=== PATIENT | male | born 1980 | race Caucasian/White ===

== ENCOUNTER 2016-10-24 01:36 | Emergency (ER) | payer OTHER ==
[~2016-10-24] VITALS: Ht 185.4 cm; Wt 119.8 kg
[2016-10-24 01:57] VITALS: BP 154/97; PULSE 113; RESP 20; TEMP 98.5; O2SAT 96
[2016-10-24] MEDS ORDERED: MULT-65 PO (02:21)
[2016-10-24] MEDS ORDERED: XANA1TAB2 PO (02:21)
[2016-10-24] MEDS ORDERED: ASPI81CH37 CHEW (02:21)
[2016-10-24] MEDS ORDERED: BP MED (02:22)
--- NOTE | 2016-10-24 02:24 | PD ---
HPI Chief Complaint: Laceration/Skin Injury Time Seen by Provider: 02:12 Travel History International Travel<30 days: No Contact w/Intl Traveler<30days: No Traveled to known affect area: No History of Present Illness HPI 35 years old male complains of left thumb laceration. Patient accidentally lacerated his left thumb with a sharp object this evening. Patient denies any other injury. Patient states that he is not up-to-date with TD booster. Patient denies any weakness and numbness of the thumb. PFSH Past Medical History Cardiovascular Problems: Yes (HTN) Diminished Hearing: No Hepatitis: Yes (hx- states cleared in last few months) Reproductive: Yes (hx floating testes) Integumentary: Yes (back of head sebacious cyst removed) Tetanus Vaccination: > 5 Years Influenza Vaccination: No Past Surgical History Other Surgery: Yes (floating testicle) Social History Alcohol Use: Yes Tobacco Use: Yes (pack a day) Substance Use: No Allergies-Medications (Allergen,Severity, Reaction): Coded Allergies: atropine (Verified Allergy, Severe, 10/24/16) hyoscyamine (Verified Allergy, Severe, 10/24/16) phenobarbital (Verified Allergy, Severe, 10/24/16) scopolamine (Verified Allergy, Severe, 10/24/16) Uncoded Allergies: DONAGEL (Allergy, Severe, 10/24/16) Reported Meds & Prescriptions Reported Meds & Active Scripts Active Reported [bP med] Multi-Vitamin Daily (Multiple Vitamin) 1 Tab Tab 1 Tab PO DAILY Aspirin Low Dose (Aspirin) 81 Mg Chew 81 Mg CHEW DAILY Xanax (Alprazolam) 1 Mg Tab 1 Mg PO BID PRN Review of Systems General / Constitutional: No: Fever Eyes: No: Visual changes HENT: No: Headaches Cardiovascular: No: Chest Pain or Discomfort Respiratory: No: Shortness of Breath Gastrointestinal: No: Abdominal Pain Genitourinary: No: Dysuria Musculoskeletal: No: Pain Skin: No Rash Neurologic: No: Weakness Psychiatric: No: Depression Endocrine: No: Polydipsia Hematologic/Lymphatic: No: Easy Bruising Physical Exam Narrative GENERAL: Well-nourished, well-developed patient. SKIN: Focused skin assessment warm/dry. HEAD: Normocephalic. EYES: No scleral icterus. No injection or drainage. NECK: Supple, trachea midline. No JVD or lymphadenopathy. CARDIOVASCULAR: Regular rate and rhythm without murmurs, gallops, or rubs. RESPIRATORY: Breath sounds equal bilaterally. No accessory muscle use. GASTROINTESTINAL: Abdomen soft, non-tender, nondistended. MUSCULOSKELETAL: No cyanosis, or edema. BACK: Nontender without obvious deformity. No CVA tenderness. Patient had 2 cm laceration radial aspect of the thumb distal phalanx. No active bleeding. No ligament tendon joint involvement. Sensorimotor function distally intact. Data Data Last Documented VS Vital Signs Date Time Temp Pulse Resp B/P (MAP) Pulse Ox O2 Delivery O2 Flow Rate FiO2 10/24/16 01:57 98.5 113 20 154/97 (116) 96 Orders Orders Tetanus/Diphtheria Tox Adult (Tetanus/Di (10/24/16 02:30) Lidocaine 1% Inj (50 Ml) (Xylocaine 1% I (10/24/16 02:30) MDM Medical Decision Making Medical Screen Exam Complete: Yes Emergency Medical Condition: Yes Differential Diagnosis Differential diagnosis including laceration, ligament tendon joint involvement. Narrative Course 35 years old male with left thumb laceration. TD booster given. Procedures Procedure Narrative LACERATION LOCATION: Left thumb LENGTH: 2 cm NUMBER OF STITCHES/ELYSE: 6 REPAIR: The area of the laceration was prepped with Betadine and sterilely draped. The laceration was infiltrated with 1% lidocaine. The wound was copiously irrigated and explored without evidence of foreign body, tendon injury or neurovascular injury. The wound was closed using 4-0 Prolene. This was a single layer repair. A sterile dressing was applied. The patient was advised to keep the dressing clean and dry. Patient tolerated the procedure well. Diagnosis Primary Impression: Laceration of left thumb Qualified Codes: S61.012A - Laceration without foreign body of left thumb without damage to nail, initial encounter Patient Instructions: General Instructions Additional Instructions: Wound care daily. Return in 10 days for suture removal. Med/Other Pt SpecificInfo: No Change to Meds Disposition: 01 DISCHARGE HOME Condition: Stable Angel White MD Oct 24, 2016 02:24
[2016-10-24] MEDS ORDERED: TETANUS/DIPHTHERIA TOXOID ADULT 0.5 ML VIAL IM ONE (02:30)
[2016-10-24] MEDS ORDERED: LIDOCAINE HCL 1% 50 ML VIAL INFIL ONE (02:30)
== END 2016-10-24 02:56 | disposition home or self-care (01) ==
LOC: PHED 01:36
DX: S61.012A Laceration without foreign body of left thumb without damage to nail, initial encounter (principal); I10 Essential (primary) hypertension; F17.210 Nicotine dependence, cigarettes, uncomplicated; Z23 Encounter for immunization; W45.8XXA Other foreign body or object entering through skin, initial encounter; Y99.8 Other external cause status
CPT/HCPCS: 12001; 90471; 90714